=== PATIENT | female | born 1960 | race Caucasian/White ===

== ENCOUNTER 2022-03-12 13:16 | Outpatient (REF) | payer MEDICARE, MEDICAID, SELFPAY ==
--- NOTE | ~2022-03-12 | XR_ITS ---
EXAMINATION: BILATERAL FOOT AND ANKLE X-RAYS CLINICAL INFORMATION: Rheumatoid arthritis COMPARISON: None TECHNIQUE: 3 views of bilateral feet and ankles FINDINGS: Bilateral ankle: Bone alignment is normal. No fracture or dislocation. The ankle mortise is normal. Soft tissues are normal. Bilateral feet: No fracture or dislocation. Mild hallux valgus deformity and arthritis at the first MTP joints bilaterally. Adjacent soft tissue swelling. Mild cystic changes in the medial first metatarsal head. Joint spaces are otherwise normal. No fracture or dislocation. Bilateral plantar calcaneal spurs. XR/XR foot RT min 3V IMPRESSION: Bilateral ankles: Unremarkable exam. Bilateral feet: Arthritis and mild hallux valgus deformity at the first MTP joints. Plantar calcaneal spurs.
--- NOTE | ~2022-03-12 | XR_ITS ---
EXAMINATION: BILATERAL FOOT AND ANKLE X-RAYS CLINICAL INFORMATION: Rheumatoid arthritis COMPARISON: None TECHNIQUE: 3 views of bilateral feet and ankles FINDINGS: Bilateral ankle: Bone alignment is normal. No fracture or dislocation. The ankle mortise is normal. Soft tissues are normal. Bilateral feet: No fracture or dislocation. Mild hallux valgus deformity and arthritis at the first MTP joints bilaterally. Adjacent soft tissue swelling. Mild cystic changes in the medial first metatarsal head. Joint spaces are otherwise normal. No fracture or dislocation. Bilateral plantar calcaneal spurs. XR/XR foot LT min 3V IMPRESSION: Bilateral ankles: Unremarkable exam. Bilateral feet: Arthritis and mild hallux valgus deformity at the first MTP joints. Plantar calcaneal spurs.
--- NOTE | ~2022-03-12 | XR_ITS ---
EXAMINATION: BILATERAL FOOT AND ANKLE X-RAYS CLINICAL INFORMATION: Rheumatoid arthritis COMPARISON: None TECHNIQUE: 3 views of bilateral feet and ankles FINDINGS: Bilateral ankle: Bone alignment is normal. No fracture or dislocation. The ankle mortise is normal. Soft tissues are normal. Bilateral feet: No fracture or dislocation. Mild hallux valgus deformity and arthritis at the first MTP joints bilaterally. Adjacent soft tissue swelling. Mild cystic changes in the medial first metatarsal head. Joint spaces are otherwise normal. No fracture or dislocation. Bilateral plantar calcaneal spurs. XR/XR ankle LT min 3V IMPRESSION: Bilateral ankles: Unremarkable exam. Bilateral feet: Arthritis and mild hallux valgus deformity at the first MTP joints. Plantar calcaneal spurs.
--- NOTE | ~2022-03-12 | XR_ITS ---
EXAMINATION: BILATERAL FOOT AND ANKLE X-RAYS CLINICAL INFORMATION: Rheumatoid arthritis COMPARISON: None TECHNIQUE: 3 views of bilateral feet and ankles FINDINGS: Bilateral ankle: Bone alignment is normal. No fracture or dislocation. The ankle mortise is normal. Soft tissues are normal. Bilateral feet: No fracture or dislocation. Mild hallux valgus deformity and arthritis at the first MTP joints bilaterally. Adjacent soft tissue swelling. Mild cystic changes in the medial first metatarsal head. Joint spaces are otherwise normal. No fracture or dislocation. Bilateral plantar calcaneal spurs. XR/XR ankle RT min 3V IMPRESSION: Bilateral ankles: Unremarkable exam. Bilateral feet: Arthritis and mild hallux valgus deformity at the first MTP joints. Plantar calcaneal spurs.
--- NOTE | ~2022-03-12 | XR_ITS ---
EXAMINATION: BILATERAL HAND AND WRIST X-RAY CLINICAL INFORMATION: Rheumatoid arthritis COMPARISON: None TECHNIQUE: 4 views of each hand and wrist FINDINGS: Right: There is periarticular osteopenia. Bone alignment is normal. No fracture or dislocation. Joint spaces are normal. No cystic changes or erosions are seen. Soft tissues are normal. Left: Bone alignment is normal. No fracture or dislocation. Periarticular osteopenia. Normal joint spaces. No erosions or cystic changes. Soft tissues are normal. XR/XR hand wrist RT IMPRESSION: Periarticular osteopenia.
--- NOTE | ~2022-03-12 | XR_ITS ---
EXAMINATION: BILATERAL HAND AND WRIST X-RAY CLINICAL INFORMATION: Rheumatoid arthritis COMPARISON: None TECHNIQUE: 4 views of each hand and wrist FINDINGS: Right: There is periarticular osteopenia. Bone alignment is normal. No fracture or dislocation. Joint spaces are normal. No cystic changes or erosions are seen. Soft tissues are normal. Left: Bone alignment is normal. No fracture or dislocation. Periarticular osteopenia. Normal joint spaces. No erosions or cystic changes. Soft tissues are normal. XR/XR hand wrist LT IMPRESSION: Periarticular osteopenia.
[2022-03-12 15:56] LABS: MANUAL DIFF FLAG NO
[2022-03-12 16:21] LABS: Basophils Absolute Auto 0.1 X10*3/uL (0.0-0.2); Basophils Percent Auto 0.7 % (0-2); Eosinophils Absolute Auto 0.1 X10*3/uL (0.0-0.4); Eosinophils Percent Auto 1.9 % (0-4); Hemoglobin 13.3 g/dl (12.0-16.0); Imm Gran Abs Auto 0.01 X10*3/uL (0.00-0.03); Imm Gran Pct Auto 0.1 % (0.0-0.4); Lymphocytes Absolute Auto 2.5 X10*3/uL (1.2-4.9); Lymphocytes Percent Auto 36.7 % (20-40); Mean Corpuscular HGB Conc 33.3 g/dl (31.0-35.0); Mean Corpuscular Volume 90.3 fL (80.0-98.0); Mean Platelet Volume 9.1 fL (9.4-12.3); Monocytes Absolute Auto 0.6 X10*3/uL (0.1-1.2); Monocytes Percent Auto 8.3 % (2-11); Neutrophils Absolute Auto 3.5 x10*3/uL (2.0-8.3); Neutrophils Percent Auto 52.3 % (45-73); Platelet Count 459 X10*3/uL (160-400); Red Blood Count 4.43 X10*6/uL (4.20-5.50); White Blood Count 6.8 X10*3/uL (4.8-10.8)
[2022-03-12 17:06] LABS: Alanine Aminotransferase 15 U/L (0-31); Albumin Level 4.3 g/dL (3.5-5.0); Alkaline Phosphatase 83 U/L (39-117); Anion Gap 15 (12-20); Aspartate Amino Transferase 21 U/L (5-31); Bilirubin Total 0.6 mg/dL (0.0-1.0); Blood Urea Nitrogen 21 mg/dL (9-16); C Reactive Protein 0.31 mg/dL (< or = 0.50); Carbon Dioxide 22 mmol/L (22-29); Chloride 105 mmol/L (96-108); Estimated Glomerular Filt Rate > 60; Ferritin 30 ng/mL (10-250); Glucose Random 75 mg/dL (60-115); Iron 113 mcg/dL (30-160); Percent Iron Saturation 32 % (15-50); Potassium 4.4 mmol/L (3.3-5.1); Rheumatoid Factor 15.5 IU/mL (<15.0); Sodium 138 mmol/L (135-145); Thyroid Stimulating Hormone 4.73 uIU/mL (0.32-4.0); Total Iron Binding Capacity 352 mcg/dL (228-428); Total Protein 6.7 g/dL (6.5-8.0); Unsaturated Iron Binding 239 ug/dL; Uric Acid 3.4 mg/dL (2.4-5.7)
[2022-03-12 17:18] LABS: Folate 12.2 ng/mL (> or = 4.0); Vitamin B12 1675 pg/mL (200-900)
[2022-03-12 17:36] LABS: Erythrocyte Sedimentation Rate 14 MM/HR (0-20)
[2022-03-12 18:08] LABS: Appearance Urine Clear; Color Urine Yellow; Glucose Urine UA Negative (Negative); Leukocyte Esterase Urine Negative (Negative); Nitrite Urine Negative (Negative); Urine Blood Negative (Negative); Urine Ketones 15 mg/dL (Negative); Urine Protein Negative (Neg-Trace)
[2022-03-12 18:15] LABS: Bacteria Urine None Seen (None Seen); Hyaline Casts Urine 0-2 /LPF (0-2); RBC Urine 0-2 /HPF (0-2); WBC Urine 0-5 /HPF (0-5)
[2022-03-12 18:18] LABS: Creatinine Urine 84.37 mg/dL; Protein/Creatinine Ratio, Ur 0.09 (<0.2); Total Protein Urine Random 8 mg/dL (<12)
[2022-03-13 22:57] LABS: Complement C3 172 mg/dL (83-193)
[2022-03-14 09:35] LABS: HBS Num1 13.12 mIU/mL (0-7.99); HBc Num1 0.29 S/CO (0.00-0.79); HBsAGNum1 0.59 S/CO (0.00-0.99); Hepatitis A Antibody IgM 0.08 Index (0-0.79); Hepatitis B Core Antibody Nonreactive (Nonreactive); Hepatitis B Surface Antigen Negative (Negative); ~HepC Num1 0.05 S/CO (0.00-0.79); ~Hepatitis A Antibody IgM Nonreactive (Nonreactive); ~Hepatitis B Surface Antibody REACTIVE (Nonreactive); ~Hepatitis C Antibody Nonreactive (Nonreactive)
[2022-03-14 11:04] LABS: Transferrin 307 mg/dL (188-341)
[2022-03-15 02:28] LABS: TS Negative Control Passed; TS Panel A 0; TS Panel B 2; TS Positive Control Passed; TSpotTB Negative (Negative)
[2022-03-15 04:44] LABS: Anti DNA DS Antibody <1 IU/mL; Antibody to SS-A Antigen <1.0 NEG AI (<1.0 NEG); Antibody to SS-B Antigen <1.0 NEG AI (<1.0 NEG); SM/Ribonucleoprotein Ab <1.0 NEG AI (<1.0 NEG); Smith Protein <1.0 NEG AI (<1.0 NEG)
[2022-03-15 05:03] LABS: Cardiolipin IgG Ab <2.0 GPL-U/mL; Cardiolipin IgM Ab 2.1 MPL-U/mL
[2022-03-18 12:39] LABS: Cyclic Citrullinated Peptide 148 UNITS
[2022-03-18 15:14] LABS: IgA 140 mg/dL (47-310); IgG 648 mg/dL (600-1640); IgM 73 mg/dL (50-300)
[2022-03-18 15:23] LABS: Anti Nuclear Antibody Screen NEGATIVE (NEGATIVE)
[2022-03-19 00:35] LABS: PTT (LAC) Screen 30 sec (<=40)
[2022-03-19 11:19] LABS: Prot Elec - Albumin 3.9 g/dL (3.8-4.8); Prot Elec - Alpha1 0.3 g/dL (0.2-0.3); Prot Elec - Alpha2 0.8 g/dL (0.5-0.9); Prot Elec - Beta 1 0.5 g/dL (0.4-0.6); Prot Elec - Beta 2 0.3 g/dL (0.2-0.5); Prot Elec - Gamma 0.6 g/dL (0.8-1.7); Prot Elec - Total Protein 6.4 g/dL (6.1-8.1)
[2022-03-19 12:02] LABS: Centromere Protein A Ab <11 SI (<11); Centromere Protein B Ab <11 SI (<11); Fibrillarin Ab <11 SI (<11); PM SCL 100 Ab <11 SI (<11); PM SCL 75 Ab <11 SI (<11); RNA Polymerase III RP11 Ab <11 SI (<11); RNA Polymerase III RP155 Ab <11 SI (<11); SCL-70 Extractable Nuclear Ab 19 SI (<11); Th-To Ab <11 SI (<11); U1 SNRNP RNP 70KD <11 SI (<11); U1 SNRNP RNP A <11 SI (<11); U1 SNRNP RNP C <11 SI (<11)
[2022-03-19 19:48] LABS: Beta-2 Glycoprotein IgA <2.0 U/mL (<20.0); Beta-2 Glycoprotein IgG <2.0 U/mL (<20.0); Beta-2 Glycoprotein IgM 2.4 U/mL (<20.0)
== END 2022-03-12 13:17 | disposition home or self-care (01) ==
LOC: HO.LAB 13:16
PROVIDERS: PCP Family Medicine; Visit Provider Student in an Organized Health Care Education/Training Program
DX: Z11.7 Encounter for testing for latent tuberculosis infection (principal); Z11.59 Encounter for screening for other viral diseases; D64.9 Anemia, unspecified; R76.8 Other specified abnormal immunological findings in serum; M05.79 Rheumatoid arthritis with rheumatoid factor of multiple sites without organ or systems involvement; Z79.899 Other long term (current) drug therapy
CPT/HCPCS: 36415; 73110; 73130; 73610; 73630; 80053; 81001; 82550; 82607; 82728; 82746; 82784; 83540; 84156; 84165; 84182; 84443; 84466; 84550; 85025; 85597; 85613; 85652; 85730; 86038; 86039; 86140; 86146; 86147; 86160; 86200; 86225; 86235; 86334; 86431; 86481; 86704; 86706; 86709; 86803; 87340; 99202

== ENCOUNTER → 2022-05-02 13:41 | Outpatient (BNVA) | payer MEDICARE, MEDICAID, SELFPAY | PROVIDERS: PCP Family Medicine; Visit Provider Student in an Organized Health Care Education/Training Program | DX: M05.79 Rheumatoid arthritis with rheumatoid factor of multiple sites without organ or systems involvement (principal); M79.7 Fibromyalgia; E53.9 Vitamin B deficiency, unspecified; E55.9 Vitamin D deficiency, unspecified; Z79.899 Other long term (current) drug therapy | CPT/HCPCS: 99212 ==